=== PATIENT | male | born 1980 | race Caucasian/White ===

== ENCOUNTER 2017-06-25 10:44 | Emergency (ER) | payer SELFPAY ==
[~2017-06-25] VITALS: Ht 182.9 cm; Wt 86.4 kg
[2017-06-25 10:50] VITALS: BP 165/74; PULSE 92; RESP 18; O2SAT 99
--- NOTE | 2017-06-25 11:04 | ED.REPORT ---
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 Associated symptoms include a rash on his hands and legs for 10 days. Denies bloody stools, diarrhea, nausea, vomiting, dysuria, hematuria. Nursing Notes Stated Complaint: EXTREME STOMACH PAIN Chief Complaint: Male Abdominal Pain Nursing Notes Reviewed: Yes Allergies: Coded Allergies: No Known Allergies (Unverified , 06/25/17) Scheduled Ciprofloxacin (Ciprofloxacin) 500 Mg Tablet 500 MG PO BID Metronidazole (Flagyl) 500 Mg Tablet 500 MG PO Q8H Scheduled PRN Hydrocodone-Acetaminophen 5-325 mg (Hydrocodone-Acetaminophen 5-325 mg) 1 Each Tablet 1 TABLET PO Q4H PRN PRN For Pain General Time Seen by MD: 10:59 Chief Complaint Abdominal pain Hx Obtained From: Patient Arrived By: Walk-in Sudden in Onset?: Yes Onset Occurred: 9 - 12 hours ago Symptom Duration: Since onset Progression since Onset: Waxes and wanes Location: : Epigastric Quality: Painful Severity: Current: Severe Severity: Maximum: Severe Recent Healthcare: No recent doctor visit, No recent hospitalization Similar Sx Previous: No Past Medical History Past Medical History HSP in childhood Poly substance abuse Past Surgical History denies Smoking History Unknown if Ever Smoker Social History Drug Use: IV drugs, Meth Ambulatory Status Independent Review of Systems GI: Reports: Abdominal pain, Denies: Bloody/tarry stool, Diarrhea, Nausea, Vomiting Male: Denies Dysuria, Denies Hematuria Complete sys rev & neg: except as marked. Skin: Reports Rash Physical Exam Initial Vital Signs Vital Signs (First) Date Time Temp Pulse Resp B/P Pulse Ox O2 Delivery O2 Flow Rate FiO2 06/25/17 10:50 36.6 92 18 165/74 99 Room Air Initial VS: Reviewed Head / Eyes: Atraumatic, Normocephalic, PERRL ENT: Mucous membranes moist, Conjunctiva normal, No scleral icterus Extremities: Vascular intact, Neuro intact, No swelling, No tenderness Neurologic: Alert, Oriented, Nonfocal Psychiatric: Mood/affect normal, Behavior normal, Normal thought content General/Constitutional: Awake, Alert Respiratory / Chest: Atraumatic, Breath sounds NL, Breath sounds = bilat, No respiratory distress Cardiovascular: Heart rate NL, Regular rhythm, Heart sounds NL, No murmurs Abdomen: Atraumatic, Soft, No guarding, No rebound Tenderness/Guarding/Rebound: Positive: Tender epigastric (Moderate) Skin: Warm, Dry Erythematous papules all extremities Interpretation & Diagnostics Lab Results Interpretation Result Diagram: 06/25/17 1140 06/25/17 1140 Test 06/25/17 11:40 06/25/17 14:00 White Blood Count 15.0th/mm3 (3.8-10.1) Red Blood Count 5.22mil/mm3 (4.40-5.80) Hemoglobin 12.6g/dL (13.8-17.2) Hematocrit 39.4% (41.0-50.0) Mean Corpuscular Volume 75.5fL (81-100) Mean Corpuscular Hemoglobin 24.1pg (27.0-35.0) Mean Corpuscular Hemoglobin Concent 32.0% (32.0-37.0) Red Cell Distribution Width 15.2% (12.3-15.4) Platelet Count 449bil/L (150-400) Neutrophils (%) (Auto) 84.9% (40-74) Lymphocytes (%) (Auto) 11.3% (14-46) Monocytes (%) (Auto) 3.3% (4-12) Eosinophils (%) (Auto) 0.1% (0-5) Basophils (%) (Auto) 0.1% (0-3) Sodium Level 137mEq/L (134-144) Potassium Level 4.2mEq/L (3.5-5.2) Chloride Level 98mEq/L (97-108) Carbon Dioxide Level 25mmol/L (18-29) Blood Urea Nitrogen 27mg/dL (6-20) Creatinine 0.61mg/dL (0.76-1.27) Estimat Glomerular Filtration Rate 160mL/min (>59) Glucose Level 120mg/dL (60-99) Lactic Acid Level 1.2mmol/L (0.4-2.0) Calcium Level 9.5mg/dL (8.5-10.1) Magnesium Level 2.1mg/dL (1.6-2.6) Total Bilirubin 0.3mg/dL (0.0-1.2) Aspartate Amino Transf (AST/SGOT) 17U/L (0-50) Alanine Aminotransferase (ALT/SGPT) 19U/L (0-44) Alkaline Phosphatase 102U/L (25-150) Total Protein 8.7g/dL (6.4-8.4) Albumin 4.1g/dL (3.4-5.0) Lipase 10U/L (13-60) Hold Marc Top Tube Received (Received) Urine Color Yellow (YELLOW) Urine Appearance Clear (CLEAR,HAZY) Urine pH 6.5 (5.0-8.0) Urine Specific [place] 1.020 (1.003-1.035) Urine Protein Negativemg/dL (NEG,TRACE) Urine Glucose (UA) Negativemg/dL (NEGATIVE) Urine Ketones Negativemg/dL (NEGATIVE) Urine Occult Blood Trace (NEGATIVE) Urine Nitrite Negative (NEGATIVE) Urine Bilirubin Negative (NEGATIVE) Urine Urobilinogen Normalmg/dL (NORMAL) Urine Leukocyte Esterase Negative (NEGATIVE) Urine RBC 3-10/hpf (0-2) Urine WBC 0-5/hpf (0-5) Urine Epithelial Cells Occasional/hpf (NONE-MOD) Urine Crystals None seen (NONE SEEN) Urine Bacteria None/hpf (NONE-FEW) Urine Hyaline Casts None/lpf (NONE) Urine Granular Casts None seen (NONE SEEN) Urine Waxy Casts None seen (NONE SEEN) Urine Red Blood Cell Casts None seen (NONE SEEN) Urine White Blood Cell Casts None seen (NONE SEEN) Urine Mucus Present (None Seen) Urine Trichomonas None seen (NONE SEEN) Urine Yeast None (NONE SEEN) Urinalysis Comment None Urine Culture Reflexed Not indicated CT Abd / Pelvis Interpretation IMPRESSION: 1. Marked circumferential thickening and hyperemia of the distal ileum suspicious for terminal ileitis. Differential considerations include inflammatory etiology such as Crohn's as well as infectious etiologies. Per the referring clinician the patient does not have a history of Crohn's disease. 2. Normal appendix. These findings were discussed with Dr. Marr at 1:18 PM on 06/25/17. 3. Mild, bilateral inguinal adenopathy. Differential considerations include reactive, infectious, and inflammatory etiologies. Short interval followup recommended to ensure resolution of this finding and exclude hematologic neoplasm. Dictated by: Brittnee Almonte M.D. on 06/25/2017 at 13:13 Study type: Abdominal CT IV contrast Interpretation / Wet Read by: Interpret - Radiologist, Discussed w radiologist Re-Eval/Medical Decision Med Decision/Clinical Course 36-year-old male history of HSP as a child presenting with abdominal pain since this morning. He is an IV drug user. CT shows ileitis. His abdominal pain resolved. He does have a mild leukocytosis. His abdomen is soft and nontender at time of discharge with only one dose of pain medicaitons.. Discussed with GI who did not think he needed to be admitted from a GI standpoint. Radiologist thought possible Crohn's. I discussed with the patient and he will be discharged home with Cipro Flagyl and pain control. Follow up with GI and primary doctor as an outpatient. He is discharged in the care of his mother. Re-Evaluation/Progress #1: Time of Eval: 13:33 Patient Status: Condition improved Re-Evaluation/Progress Note: Advised of CT results. Pt still complains of abdominal pain. Re-Evaluation/Progress #2: Time of Eval: 15:06 Patient Status: Condition improved Re-Evaluation/Progress Note: Discussed plan for admission. Pt understands and agrees. Consultation : Referral / Consult Name: Dov Benito MD Call Returned at: 14:27 Note: Gastroenterology. He will see the pt if the hospital requests. Does not recommend any steroids. Counseled Regarding: Diagnosis, Lab results, Need for follow-up, When/why to return to ED Patient Discharge & Departure Primary Impression: Ileitis Disposition: Home Discharge Condition All VS Reviewed: Yes Condition: Improved Additional Instructions: Your pain resolved therefore you will be discharged home with antibiotics and pain medication. Call gastroenterology for outpatient follow up. Return to the ER for any fever nausea, vomiting, worse pain, or any other new or worsening symptoms. Follow up with your primary care doctor tomorrow for a recheck. Take Cipro and Flagyl as prescribed for 14 days. Referrals: Dov Benito MD Attestation Portions of this note were transcribed by Heidi Mosley. I, Dr. Marr personally performed the history, physical exam and medical decision-making; I reviewed and confirmed the accuracy of the information in the transcribed note. Signed by: Bradley Paredes, 06/25/2017. copies to: Dov Benito MD, Ben M MD Jun 25, 2017 11:04 HEIDI MOSLEY Jun 25, 2017 11:41
[2017-06-25] MEDS ORDERED: 0.9% Sodium Chloride 1,000 ML IV ONE ×2 (11:08→11:38)
[2017-06-25] MEDS ORDERED: Ondansetron 2 mg/mL 2 mL Inj IVPUSH PRN ×2 (11:10→11:40)
[2017-06-25] MEDS ORDERED: LidocaineVisc 2%:Antacid 1:1 10 mL Syringe PO ONE (11:40)
[2017-06-25 12:18] LABS: BASOPHILS % (AUTO) 0.1 % (0-3); EOSINOPHILS % (AUTO) 0.1 % (0-5); MONOCYTES % (AUTO) 3.3 % (4-12); Mean Corpuscular Hemoglobin 24.1 pg (27.0-35.0); Mean Corpuscular Volume 75.5 fL (81-100); NEUTROPHILS % (AUTO) 84.9 % (40-74); Platelet Count 449 bil/L (150-400)
[2017-06-25 12:21] LABS: Magnesium 2.1 mg/dL (1.6-2.6)
--- NOTE | 2017-06-25 13:20 | DRSVH ---
PROCEDURE: CT ABDOMEN AND PELVIS WITH CONTRAST ([id number]) INDICATIONS: abd pain epigastric TECHNIQUE: After the administration of intravenous contrast, 5 mm thick sections acquired from the diaphragm to the symphysis. 5 mm coronal and sagittal reformats were acquired. For radiation dose reduction, the following was used: automated exposure control, adjustment of mA and/or kV according to patient siz e. COMPARISON: None. FINDINGS: Image quality: Excellent. ABDOMEN: Lung bases: Lung bases are clear. Heart size is normal. Solid organs: Liver and spleen are normal in size and enhancement. Gallbladder is unremarkable. Bi liary system is non dilated. Pancreas enhances normally. No adrenal nodules. Kidneys demonstrate n ormal size and enhancement, without hydronephrosis. Peritoneum and bowel: The stomach demonstrates normal wall thickness. The proximal portion of the sma ll bowel demonstrates normal caliber and wall thickness. There is marked, circumferential wall thicke demetria and hyperemia of the distal ileum. Enteric fluid and fat stranding is present. The appendix is thin-walled. The colon demonstrates kedar l caliber and wall thickness. No pneumoperitoneum. There is a small amount of low-density free pelvic fluid. No pneumatosis. Nodes and vessels: No retroperitoneal or mesenteric adenopathy by size criteria. Aorta and inferior vena cava are normal in size. Miscellaneous: No ventral hernias. PELVIS: Genitourinary: Bladder wall thickness is normal. Miscellaneous: No inguinal hernias. There are bilateral enlarged iliac lymph nodes. Bones: No suspicious bony lesions. No vertebral body compression fractures. IMPRESSION: 1. Marked circumferential thickening and hyperemia of the distal ileum suspicious for terminal ileiti s. Differential considerations include inflammatory etiology such as Crohn's as well as infectious et iologies. Per the referring clinician the patient does not have a history of Crohn's disease. 2. Normal appendix. These findings were discussed with Dr. Teo Rice at 1:18 PM on 06/25/17. 3. Mild, bilateral inguinal adenopathy. Differential considerations include reactive, infectious, and inflammatory etiologies. Short interval followup recommended to ensure resolution of this finding an d exclude hematologic neoplasm. Dictated by: Brittnee Almonte M.D. on 06/25/2017 at 13:13 Approved by: Brittnee Almonte M.D. on 06/25/2017 at 13:19
[2017-06-25 13:59] VITALS: BP 132/62; PULSE 72; RESP 16; O2SAT 98
[2017-06-25] MEDS ORDERED: Piperacillin-Tazo 3.375 Gm Inj 3.375 GM in Dextrose 5% Minibag Plus 50 ML IV ONE (14:30)
[2017-06-25 14:32] LABS: APPEARANCE,URINE CLEAR (CLEAR,HAZY); COLOR,URINE YELLOW (YELLOW); OCCULT BLOOD,URINE TRACE (NEGATIVE); PH,URINE 6.5 (5.0-8.0); UROBILINOGEN,URINE NORMAL (NORMAL)
[2017-06-25] MEDS ORDERED: CIPR-198 PO (15:27)
[2017-06-25] MEDS ORDERED: HYDR-4003 PO (15:27)
[2017-06-25] MEDS ORDERED: METR500T PO (15:27)
[2017-06-25 15:58] VITALS: BP 129/68; PULSE 72; RESP 16; O2SAT 98
== END 2017-06-25 16:00 | disposition home or self-care (01) ==
LOC: SED 10:44
DX: K52.9 Noninfective gastroenteritis and colitis, unspecified (principal)
CPT/HCPCS: 36415; 74177; 80053; 81000; 83605; 83690; 83735; 85025; 96361; 96374; 96375; 99285; J2270; J2405; J7030; Q9967